=== PATIENT | female | born 1940 | race Caucasian/White ===

== ENCOUNTER 2016-02-16 11:02 | Outpatient (CLI) | payer MEDICARE, BC | END 2016-02-16 11:03 | disposition home or self-care (01) | DX: E78.5 Hyperlipidemia, unspecified (principal); M79.662 Pain in left lower leg ==

== ENCOUNTER 2016-03-02 11:26 | Outpatient (CLI) | payer MEDICARE, BC | END 2016-03-02 11:27 | disposition home or self-care (01) | DX: M17.12 Unilateral primary osteoarthritis, left knee (principal) ==

== ENCOUNTER 2017-03-27 13:34 | Outpatient (CLI) | payer MEDICARE, BC ==
[2017-03-27 17:53] LABS: BASOPHILS % (AUTO) 0.5 %; HGB - HEMOGLOBIN 12.1 g/dL (12.0-16.0); LYMPHOCYTES # (AUTO) 0.7 10^3/uL (1.5-3.5); LYMPHOCYTES % (AUTO) 30.6 %; MEAN CORPUSCULAR HEMOGLOBIN 30.5 pg (27.0-31.0); MEAN CORPUSCULAR VOLUME 89.8 fL (81.0-99.0); MEAN PLATELET VOLUME 7.9 fL (7.9-10.8); MONOCYTES # (AUTO) 0.4 10^3/uL (0.0-1.0); MONOCYTES % (AUTO) 17.7 %; NEUTROPHILS # (AUTO) 1.1 10^3/uL (1.5-6.6); NEUTROPHILS % (AUTO) 50.2 %; PLT - PLATELET COUNT 100 10^3/uL (130-450); RED BLOOD COUNT 3.95 10^6/uL (4.20-5.40); RED CELL DISTRIBUTION WIDTH 15.6 % (12.0-15.0); WHITE BLOOD COUNT 2.1 x10^3/uL (4.8-10.8)
[2017-03-27 18:37] LABS: PLATELET ESTIMATE, MANUAL DECREASED (<130,000) (NORMAL); PLATELET MORPHOLOGY NORMAL APPEARANCE (NORMAL); RBC MORPHOLOGY (MULTIPLE) NORMAL APPEARANCE (NORMAL)
[2017-03-27 20:37] LABS: DIFFERENTIAL COMMENT MANUAL=AUTO DIFF
== END 2017-03-27 13:35 | disposition home or self-care (01) ==
LOC: LAB.F 13:34
PROVIDERS: ATTEND Physician Assistant
DX: D69.6 Thrombocytopenia, unspecified (principal); D72.819 Decreased white blood cell count, unspecified
CPT/HCPCS: 36415; 85025

== ENCOUNTER 2020-10-05 18:27 | Outpatient (CLI) | payer MEDICARE, BC | END 2020-10-05 18:28 | disposition home or self-care (01) | LOC: COV 18:27 | PROVIDERS: ATTEND Family Medicine | DX: Z20.822 Contact with and (suspected) exposure to COVID-19 (principal) ==

== ENCOUNTER 2021-01-31 12:19 | Outpatient (CLI) | payer MEDICARE, BC ==
--- NOTE | 2021-01-31 14:51 | XRAY Report ---
PROCEDURE: Hip w/Pelvis 2-3V RT INDICATIONS: RT HIP PAIN TECHNIQUE: AP pelvis with lateral view(s) of the right hip(s). COMPARISON: None. FINDINGS: Bones: No fractures or dislocations. Asymmetric moderate right hip joint osteoarthritic changes are seen. No evidence of avascular necrosis of femoral head. Pelvic ring appears intact. No suspicious bony lesions. Soft tissues: The visualized bowel gas pattern is normal. No suspicious soft tissue calcifications. IMPRESSION: Asymmetric right hip joint osteoarthritis. No pelvic or hip fracture. No evidence of avas cular necrosis. Reviewed by: Sekou Cobb MD on 01/31/2021 2:50 PM PST Approved by: Sekou Cobb MD on 01/31/2021 2:50 PM PST Station ID: [id number]
== END 2021-01-31 12:20 | disposition home or self-care (01) ==
LOC: DI 12:19
PROVIDERS: ATTEND Hospitalist
DX: M25.551 Pain in right hip (principal)

== ENCOUNTER 2021-05-03 06:24 | Inpatient (IN) | payer MEDICARE, BC ==
[2021-05-03] MEDS ORDERED: SODIUM CHLORIDE 0.9% 1,000 ML IV STA ×4 (06:51→11:00)
[2021-05-03] MEDS ORDERED: KETOROLAC 30 MG/ML VIAL IVP STA (06:51)
[2021-05-03] MEDS ORDERED: ONDANSETRON 4 MG/2 ML VIAL IVP STA (06:51)
[2021-05-03 07:09] LABS: ALBUMIN 4.3 g/dL (3.2-5.5); ALBUMIN/GLOBULIN RATIO 1.3 (1.0-2.2); BILIRUBIN,TOTAL 1.6 mg/dL (0.2-1.0); CALCIUM 9.6 mg/dL (8.5-10.3); CREATININE 1.3 mg/dL (0.4-1.0); POTASSIUM 3.9 mmol/L (3.5-5.0); TOTAL PROTEIN 7.7 g/dL (6.7-8.2)
--- NOTE | 2021-05-03 07:09 | ED Physician Documentation ---
PD HPI ABD PAIN - Stated complaint Stated Complaint: FEMALE - Chief complaint Chief Complaint: Abd Pain - History obtained from History obtained from: Patient - History of Present Illness Timing - onset: Last night Timing - duration: Days (2-3 mild lower abd cramping with marked worsening this morning in past hour or so.) Timing - details: Gradual onset, Still present Quality: Cramping, Aching, Pain Location: Suprapubic, LLQ Radiation: Left flank (just this morning) Associated symptoms: Fever, Nausea, Constipation, Loss of appetite. 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 denies: Vomiting, Diarrhea : denies: Dysuria, Frequency, Discharge Neurologic: reports: Generalized weakness. denies: Near syncope, Altered mental status, Headache PD PAST MEDICAL HISTORY - Past Medical History Past Medical History: Yes Cardiovascular: Hypertension, High cholesterol, Atrial fibrillation Respiratory: None Endocrine/Autoimmune: None GI: None : None HEENT: None Psych: None Musculoskeletal: None Derm: Other Other Past Medical History: pancytopenia with usually low WBC, platelets and anemia. 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 HEENT: Other - Present Medications Home Medications: Ambulatory Orders Medication Instructions Recorded Confirmed Cholecalciferol (Vitamin D3) 2,000 unit PO DAILY 05/08/17 05/03/21 [Vitamin D3] atenoloL [Atenolol] 25 mg PO DAILY 05/08/17 05/03/21 Multivitamin 1 each PO DAILY 05/03/21 05/03/21 - Allergies Allergies/Adverse Reactions: Allergies Allergy/AdvReac Type Severity Reaction Status Date / Time No Known Drug Allergies Allergy Verified 05/03/21 06:48 - Social History Does the pt smoke?: No Smoking Status: Never smoker Does the pt drink ETOH?: No Does the pt have substance abuse?: No - Immunizations Immunizations are current?: Yes - POLST Patient has POLST: No PD ED PE NORMAL - Vitals Vital signs reviewed: Yes (temp initially normal but increased to 38.) - General General: Alert and oriented X 3, Well developed/nourished, Other (appears in considerable left flank pain on arrival to ER. ) - HEENT HEENT: Pharynx benign - Neck Neck: Supple, no meningeal sign, No adenopathy - Cardiac Cardiac: RRR, No murmur - Respiratory Respiratory: Clear bilaterally - Abdomen Abdomen: Normal bowel sounds, Soft, Non distended, No organomegaly, Other (tenderness left lower abd without percussion/guarding/nor rebound tenderness. ) - Female Female : Deferred - Rectal Rectal: Deferred - Back Back: Other (moderate left CVA tenderness to percussion. ) - Derm Derm: Normal color, Warm and dry - Extremities Extremities: Normal ROM s pain, No edema, No calf tenderness / cord - Neuro Neuro: Alert and oriented X 3, No motor deficit, Normal speech Eye Opening: Spontaneous Motor: Obeys Commands Verbal: Oriented GCS Score: 15 Results - Vitals Vitals: Vital Signs - 24 hr 05/03/21 05/03/21 05/03/21 06:35 07:27 08:00 Temperature 36.2 C L 40.1 C H 38.6 C H Heart Rate 100 104 H 98 Respiratory 20 24 14 Rate Blood Pressure 173/94 H 145/69 H 121/57 L O2 Saturation 96 94 92 05/03/21 05/03/21 05/03/21 08:30 09:00 09:30 Temperature Heart Rate 98 87 83 Respiratory 16 12 15 Rate Blood Pressure 118/57 L 92/59 L 99/51 L O2 Saturation 94 94 96 05/03/21 05/03/21 09:45 10:32 Temperature 36.2 C L Heart Rate 87 133 H Respiratory 20 18 Rate Blood Pressure 95/65 94/57 L O2 Saturation 94 92 Oxygen O2 Source Room air - Tele (time rhythm occurred) in ED Telemetry / rhythm strip: Rate (125), Atrial fibrillation (initially was NSR but developed atrial fib while in ER, rate 120s. Given Metroprolol IV after fluid bolus for BP. ) - Labs Labs: Laboratory Tests 05/03/21 05/03/21 05/03/21 06:44 06:44 08:17 WBC 4.6 L RBC 4.44 Hgb 13.4 Hct 41.1 MCV 92.6 MCH 30.2 MCHC 32.6 RDW 14.9 Plt Count 88 L MPV 11.0 H Neut # (Auto) Not Reportable Lymph # (Auto) Not Reportable [place] # (Auto) Not Reportable Eos # (Auto) Not Reportable Baso # (Auto) Not Reportable Absolute Nucleated RBC Not Reportable Total Counted 100 Band Neuts % (Manual) 18 H Abnorm Lymph % (Manual) 0 Myelocytes % 4 H Nucleated RBC % Not Reportable Neutrophils # (Manual) 4.2 Lymphocytes # (Manual) 0.2 L Monocytes # (Manual) 0.0 Eosinophils # (Manual) 0.0 Basophils # (Manual) 0.0 Differential Comment MANUAL DIFFERENTIAL Manual Slide Review Indicated Sodium 137 Potassium 3.9 Chloride 99 L Carbon Dioxide 24 Anion Gap 14.0 H BUN 25 H Creatinine 1.3 H Estimated GFR (MDRD) 39 L Glucose 119 H Lactic Acid Calcium 9.6 Total Bilirubin 1.6 H AST 30 ALT 19 Alkaline Phosphatase 69 Total Protein 7.7 Albumin 4.3 Globulin 3.4 Albumin/Globulin Ratio 1.3 Lipase 39 Urine Color BROWN Urine Clarity CLOUDY Urine pH 5.5 Ur Specific [place] 1.020 Urine Protein >=300 H Urine Glucose (UA) NEGATIVE Urine Ketones NEGATIVE Urine Occult Blood LARGE H Urine Nitrite POSITIVE H Urine Bilirubin NEGATIVE Urine Urobilinogen 1 (NORMAL) Ur Leukocyte Esterase LARGE H Urine RBC TNTC H Urine WBC >25 H Ur Squamous Epith Cells NONE SEEN Urine Bacteria Rare Ur Microscopic Review INDICATED Urine Culture Comments INDICATED Nasal Adenovirus (PCR) Nasal B. parapertussis DNA (PCR) Nasal Coronavir 229E PCR Nasal Coronavir HKU1 PCR Nasal Coronavir NL63 PCR Nasal Coronavir OC43 PCR Nasal Enterovir/Rhinovir PCR Nasal Influenza B PCR Nasal Influenza A PCR Nasal Parainfluen 1 PCR Nasal Parainfluen 2 PCR Nasal Parainfluen 3 PCR Nasal Parainfluen 4 PCR Nasal RSV (PCR) Nasal B.pertussis DNA PCR Nasal C.pneumoniae (PCR) Re[place]undo Human Metapneumo PCR Nasal M.pneumoniae (PCR) Nasal SARS-CoV-2 (PCR) 05/03/21 05/03/21 08:30 10:35 WBC RBC Hgb Hct MCV MCH MCHC RDW Plt Count MPV Neut # (Auto) Lymph # (Auto) [place] # (Auto) Eos # (Auto) Baso # (Auto) Absolute Nucleated RBC Total Counted Band Neuts % (Manual) Abnorm Lymph % (Manual) Myelocytes % Nucleated RBC % Neutrophils # (Manual) Lymphocytes # (Manual) Monocytes # (Manual) Eosinophils # (Manual) Basophils # (Manual) Differential Comment Manual Slide Review Sodium Potassium Chloride Carbon Dioxide Anion Gap BUN Creatinine Estimated GFR (MDRD) Glucose Lactic Acid 1.5 Calcium Total Bilirubin AST ALT Alkaline Phosphatase Total Protein Albumin Globulin Albumin/Globulin Ratio Lipase Urine Color Urine Clarity Urine pH Ur Specific [place] Urine Protein Urine Glucose (UA) Urine Ketones Urine Occult Blood Urine Nitrite Urine Bilirubin Urine Urobilinogen Ur Leukocyte Esterase Urine RBC Urine WBC Ur Squamous Epith Cells Urine Bacteria Ur Microscopic Review Urine Culture Comments Nasal Adenovirus (PCR) NOT DETECTED Nasal B. parapertussis DNA (PCR) NOT DETECTED Nasal Coronavir 229E PCR NOT DETECTED Nasal Coronavir HKU1 PCR NOT DETECTED Nasal Coronavir NL63 PCR NOT DETECTED Nasal Coronavir OC43 PCR NOT DETECTED Nasal Enterovir/Rhinovir PCR NOT DETECTED Nasal Influenza B PCR NOT DETECTED Nasal Influenza A PCR NOT DETECTED Nasal Parainfluen 1 PCR NOT DETECTED Nasal Parainfluen 2 PCR NOT DETECTED Nasal Parainfluen 3 PCR NOT DETECTED Nasal Parainfluen 4 PCR NOT DETECTED Nasal RSV (PCR) NOT DETECTED Nasal B.pertussis DNA PCR NOT DETECTED Nasal C.pneumoniae (PCR) NOT DETECTED Reymundo Human Metapneumo PCR NOT DETECTED Nasal M.pneumoniae (PCR) NOT DETECTED Nasal SARS-CoV-2 (PCR) NOT DETECTED - Rads (name of study) abd/pelvic CT Radiology: Prelim report reviewed (bladder wall thickening, bilateral perinephric stranding left greater than right, c/w infectious process. no kidney stones. ), See rad report PD MEDICAL DECISION MAKING - ED course Complexity details: reviewed results (CT did not show any ureteral stones. No hydronephrosis. has perinephric stranding and bladder wall thickening. no other acute process. UA c/w UTI and relatively elevated WBCs (she is usually WBC 2-3) with bandemia. ), re-evaluated patient (she is feeling less pain and generally improved, but now BP is lowering to about 90s systolic and then she did change rhythm into atrial fib (which she says is paroxysmal often for her). I feel she has impending sepsis, with markers of significant infection: fever, bandemia, developing hypotension. ), considered differential (consider kidney stone with degree of pain abruptly, versus diverticulitis, pyelo, other process. ), d/w patient - Critical Care Time(min): 45 Time Includes: Direct patient care, Reassess patient, Document care, Coordinate care, See progress note (initial severe pain and treated with meds. Given IV fluids x 2 liters as developing lower BP in setting of infection, and then given IV meds for fast rate atrial fib in ER. Eval for impending sepsis. ) Data interpretation: Labs Departure - Departure Disposition: [facility] DC/Xfer Clinical Impression: Fever, UTI (urinary tract infection), Bandemia, Hypotension Condition: Stable Discharge Date/Time: 05/03/21 11:25
[2021-05-03 07:19] LABS: BASOPHILS % (AUTO) 0.4 %; EOSINOPHILS % (AUTO) 0.2 %; HCT - HEMATOCRIT 41.1 % (37.0-47.0); HGB - HEMOGLOBIN 13.4 g/dL (12.0-16.0); LYMPHOCYTES % (AUTO) 8.1 %; MEAN CORPUSCULAR HEMOGLOBIN 30.2 pg (27.0-31.0); MEAN CORPUSCULAR HGB CONC 32.6 g/dL (32.0-36.0); MEAN CORPUSCULAR VOLUME 92.6 fL (81.0-99.0); MONOCYTES % (AUTO) 1.1 %; PLT - PLATELET COUNT 88 10^3/uL (130-450); RED BLOOD COUNT 4.44 10^6/uL (4.20-5.40); RED CELL DISTRIBUTION WIDTH 14.9 % (12.0-15.0); SLIDE REVIEW? Indicated; WHITE BLOOD COUNT 4.6 x10^3/uL (4.8-10.8)
[2021-05-03 07:20] LABS: ABNORMAL LYMPHS % (MANUAL) 0 %
[2021-05-03 07:56] LABS: BAND NEUTROPHILS % (MANUAL) 18 %; DIFFERENTIAL COMMENT MANUAL DIFFERENTIAL; LYMPHOCYTES # (MANUAL) 0.2 10^3/uL (1.5-3.5); LYMPHOCYTES % (MANUAL) 4 %; MYELOCYTES % (MANUAL) 4 %; NEUTROPHILS # (MANUAL) 4.2 10^3/uL (1.5-6.6)
[2021-05-03] MEDS ORDERED: ACETAMINOPHEN 325 MG TABLET PO STA (08:03)
[2021-05-03 08:41] LABS: GLUCOSE, URINE (UA) NEGATIVE (NEGATIVE); KETONES,URINE (UA) NEGATIVE (NEGATIVE); LEUKOCYTE ESTERASE, URINE LARGE (NEGATIVE); NITRITE,URINE POSITIVE (NEGATIVE); OCCULT BLOOD,URINE LARGE (NEGATIVE); PH,URINE 5.5 PH (5.0-7.5); PROTEIN,URINE >=300 mg/dL (NEGATIVE); UROBILINOGEN,URINE 1 (NORMAL) E.U./dL (NORMAL)
[2021-05-03 08:51] LABS: BILIRUBIN,URINE NEGATIVE (NEGATIVE); CLARITY,URINE CLOUDY (CLEAR); ICTOTEST,URINE NEGATIVE
--- NOTE | 2021-05-03 08:51 | CT Report ---
PROCEDURE: Abdomen/Pelvis WO INDICATIONS: L flank pain TECHNIQUE: Noncontrast 5 mm thick sections acquired from the diaphragms to the symphysis. 5 mm coronal and sagi ttal reformats were then performed. For radiation dose reduction, the following was used: automated exposure control, adjustment of mA and/or kV according to patient size. COMPARISON: None. FINDINGS: Inferior chest: Bibasilar atelectasis or scarring. No pleural effusion. No cardiomegaly or pericardi al effusion. Trace hiatal hernia. Gallbladder: The gallbladder is distended with a smooth wall. Biliary tree: No intra-or extrahepatic biliary ductal dilatation. Liver: The liver demonstrates normal appearance. Spleen: Normal size and morphology is seen. Pancreas: Normal morphology without masses or inflammatory changes. Adrenals: Normal size without masses. Kidneys: Bilateral perinephric stranding, right greater than left. No contour deforming solid masses or evidence of obstructive uropathy. Vasculature: No evidence of aneurysm or other significant vascular pathology. Calcified edematous c hange of the liver. Lymphatic system: No pathologic enlargement by size criteria. Bowel: No evidence of intestinal obstruction or inflammatory change. Mild to moderate stool burden th roughout the colon. Sigmoid of tuberculosis. Normal appendix. Peritoneum/Retroperitoneum: No free intraperitoneal gas or large collection. Urinary bladder: Mild wall thickening of the urinary bladder, which is underdistended. Pelvic organs: The uterus appears surgically absent. Bones/soft tissues: Multifocal degenerative change. IMPRESSION: 1.Mild wall prominence of the urinary bladder, which may be related to underdistention. Cystitis aneta ot be excluded. 2.Mild to moderate stool burden throughout the colon. 3.Bilateral nonspecific perinephric stranding, right greater than left. Concordant interpretation with preliminary report. Reviewed by: Eddie Schilling MD on 05/03/2021 8:49 AM PDT Approved by: Eddie Schilling MD on 05/03/2021 8:49 AM PDT Station ID: [id number]
[2021-05-03 08:52] LABS: BACTERIA,URINE Rare /HPF (None Seen); RBC,URINE TNTC /HPF (0-5); SQUAMOUS EPITHELIAL CELL,UR NONE SEEN (<= Few); WBC,URINE >25 /HPF (0-5)
[2021-05-03] MEDS ORDERED: cefTRIAXone 1 GM VIAL IVP STA (08:59)
[2021-05-03] MEDS ORDERED: METOPROLOL 5 MG/5 ML VIAL IVP STA (10:21)
[2021-05-03] MEDS ORDERED: SODIUM CHLORIDE FLUSH 0.9% 10 ML SYRINGE IVP PRN (10:36)
[2021-05-03] MEDS ORDERED: ONDANSETRON 4 MG/2 ML VIAL IVP PRN (10:36)
[2021-05-03 11:36] LABS: CORONAVIRUS 229E-RESP PCR NOT DETECTED; CORONAVIRUS HKU1-RESP PCR NOT DETECTED; CORONAVIRUS NL63-RESP PCR NOT DETECTED; CORONAVIRUS OC43-RESP PCR NOT DETECTED; HUMAN METAPNEUMOVIRUS NOT DETECTED; INFLUENZA A- RESP PCR PANEL NOT DETECTED; INFLUENZA B - RESP PCR PANEL NOT DETECTED; PARAINFLUENZA VIRUS 1 NOT DETECTED; PARAINFLUENZA VIRUS 2 NOT DETECTED; RHINOVIRUS/ENTEROVIRUS NOT DETECTED; SARS-CoV-2 -RESP PCR PANEL NOT DETECTED
[2021-05-03 11:37] LABS: B. PARAPERTUSSIS- RESP PCR PAN NOT DETECTED; B. PERTUSSIS- RESP PCR PANEL NOT DETECTED; C. PNEUMONIAE- RESP PCR PANEL NOT DETECTED; M. PNEUMONIAE- RESP PCR PANEL NOT DETECTED; PARAINFLUENZA VIRUS 3 NOT DETECTED; PARAINFLUENZA VIRUS 4 NOT DETECTED; RSV- RESP PCR PANEL NOT DETECTED
[2021-05-03] MEDS: ACETAMINOPHEN 325 MG TABLET PO PRN ×2 (12:33→21:52)
--- NOTE | 2021-05-03 12:48 | PHARMACY PROGRESS NOTE ---
- Best Possible Medication History Admit Date and Time: 05/03/21 1036 Processed by: Nursing Medication History completed: Yes Patient Interview: Completed Secondary Source(s): Pharmacy records, Insurance records As the person ultimately responsible for medication therapy, providers are able to order a medication from an existing home medication list in [facility] via the "Reconcile Routine" prior to Confirmation of that medication by manufacturing support engineer. Such practice is discouraged except when the physician, in their clinical judgment, deems that a medical need exists for a medication without regard to previous use.
[2021-05-03] MEDS ORDERED: SODIUM CHLORIDE 0.9% 1,000 ML IV ONE (13:28)
[2021-05-03] MEDS: LACTATED RINGERS 1,000 ML IV SCH ×2 (13:28→21:07)
--- NOTE | 2021-05-03 13:32 | HISTORY & PHYSICAL EXAMINATION ---
Chief Complaint - Chief Complaint Chief Complaint: Flank pain History of Present Illness - Admitted From Admitted From:: ED - History Obtained From History obtained from: ED provider and the patient - History of Present Illness HPI Comment/Other: This is an 80-year-old white female with a remote history of atrial fib for which she was put on atenolol and saw Dr roper over 10 years ago. She also has a history of pancytopenia and is followed by Dr. Casas at [facility]; she has never had a bone marrow biopsy see to determine the etiology and has never required platelet or blood transfusions. For the last few days she has noticed hematuria and lower abdominal pain, then today developed flank pain that was severe and she drove herself to the ED. In the ER, her white blood count was 4.6 but it usually runs 2, and she had shaking chills and spiked a fever of 40 degrees C. Her blood pressure has been declining ever since presentation from systolic 140 down to 120 then 90 and currently 70 systolic. She received IV narcotics for her flank pain. She underwent a CT of the abdomen and pelvis that showed bilateral perinephric streaking consistent with pyelonephritis, no hydronephrosis, and no stones were seen. The patient is being admitted for management of sepsis from pyelonephritis. While in the ED, she went into A. fib with RVR with rates of 120. She reported to the ED provider about the remote history of having A. fib and said she can feel palpitations when she gets her A. fib. She received 1 dose of IV metoprolol. She does still feel her palpitations, but denies any chest pain, dizziness or dyspnea. 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 ) Social History Notes: She does not smoke and never smoked cigarettes. She drinks alcohol socially, possibly 3 times a week. 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 She moved to [facility] 13 yrs ago from [place]. She gardens and walks alot, is "not sedentary". - Substance History Use: Uses substance without health or social issues: NONE - POLST Patient has POLST: No Meds/Allgy - Home Medications Home Medications: Ambulatory Orders Medication Instructions Recorded Confirmed Cholecalciferol (Vitamin D3) 2,000 unit PO DAILY 05/08/17 05/03/21 [Vitamin D3] atenoloL [Atenolol] 25 mg PO DAILY 05/08/17 05/03/21 Multivitamin 1 each PO DAILY 05/03/21 05/03/21 - Allergies Allergies/Adverse Reactions: Allergies Allergy/AdvReac Type Severity Reaction Status Date / Time No Known Drug Allergies Allergy Verified 05/03/21 06:48 Review of Systems - Musculoskeletal Musculoskeletal: reports: Back pain - All Other Systems All Other Systems: reports: Reviewed and negative Exam - Vital Signs Reviewed Vital Signs: Yes Vital Signs: Vital Signs x48h Temp Pulse Pulse Pulse Resp BP BP 05/03/21 13:20 87 14 05/03/21 12:47 124 H 70/40 L 05/03/21 12:15 78/44 L 05/03/21 11:33 37.1 C 05/03/21 11:29 115 H 20 82/46 L 05/03/21 11:14 36.2 C L 122 H 22 95/55 L 05/03/21 10:56 121 H 14 94/55 L 05/03/21 10:32 133 H 18 94/57 L 05/03/21 09:45 36.2 C L 87 20 95/65 05/03/21 09:30 83 15 99/51 L 05/03/21 09:00 87 12 92/59 L 05/03/21 08:30 98 16 118/57 L 05/03/21 08:00 38.6 C H 98 14 121/57 L 05/03/21 07:27 40.1 C H 104 H 24 145/69 H 05/03/21 06:35 36.2 C L 100 20 173/94 H Pulse Ox 05/03/21 13:20 97 05/03/21 12:47 05/03/21 12:15 05/03/21 11:33 05/03/21 11:29 97 05/03/21 11:14 96 05/03/21 10:56 92 05/03/21 10:32 92 05/03/21 09:45 94 05/03/21 09:30 96 05/03/21 09:00 94 05/03/21 08:30 94 05/03/21 08:00 92 05/03/21 07:27 94 05/03/21 06:35 96 - Physical Exam General Appearance: positive: No acute distress, Alert Eyes Bilateral: positive: Normal inspection, EOMI ENT: positive: ENT inspection nml, No signs of dehydration Neck: positive: No JVD, Other (L neck mass: dark mole with raised, red borders, non-tender) Respiratory: positive: No respiratory distress, Breath sounds nml Cardiovascular: positive: No murmur, Irregularly irregular Abdomen: positive: Non-tender, Nml bowel sounds, No distention Skin: positive: Warm, Dry Extremities: positive: Non-tender, No pedal edema Neurologic/Psychiatric: positive: Oriented x3 (Non-focal) Sepsis Event Note (H) - Evaluation Current Stage of Sepsis: Sepsis Possible source of Sepsis: positive: Genitourinary - Sepsis Criteria Sepsis Criteria: Recorded Temperature greater than 38.3C or Less than 36C, Recorded Heart Rate greater than 90 bpm, SBP drop more than 40mHg Conclusion/Plan - Problem List (1) Sepsis Conclusion/Plan: She has a very high fever, is tachycardic and is having worsening hypotension. We will treat with IV fluids, recheck her lactic acid level, also follow her white blood count and CRP. We will begin treatment with empiric IV antibiotics for her UTI source (2) Pyelonephritis Conclusion/Plan: CT imaging shows perinephric fat stranding bilaterally, no obstruction. We will treat with IV antibiotics, continue with ceftriaxone. Await blood culture results. Await urine culture results. Give IV pain meds if needed (3) Hypotension Conclusion/Plan: Presumably this is from sepsis however will rule out cardiac cause given the A. fib with RVR and check troponins and an EKG. Continue with IV fluids. Follow her lactic acid level and CRP, if this is related to her infection that is potentially worsening. Consider transferring to the ICU (4) Atrial fibrillation with RVR Conclusion/Plan: This is not new onset A. fib however she describes she has had no "palpitations" (which is her way of confirming A. fib), for over 10 years. Will give IV Digoxin for rate control, hold beta-bharat atenolol or any further IV medications because of her low blood pressure. We will check troponins to rule out NH as the cause of this new A. fib. We will order Echo to evaluate for structural heart disease (however we do not have any Echo service currently) Currently her CHADS score equals 2 (hypertension and age over 75). But because of her thrombocytopenia, we will be hesitant to start anticoagulation or anti- platelet agents. (5) Pancytopenia Conclusion/Plan: As per Hx. The etiology is not known since she has never had a bone marrow biopsy done. Will use SCDs for DVT prophylaxis, not anticoagulants (6) Atypical mole of neck Conclusion/Plan: She already has an appointment with Dermatology to have this removed in mid-May [place] - Lab Results Fish Bones: 05/03/21 06:44 05/03/21 06:44 - Diagnostic Imaging Results Diagnostic Imaging Results: positive: Final report reviewed - EKG Results EKG Interpreted Independently: Yes EKG Comparison: Old EKG unavailable EKG Findings: A. fib, rate 127, nonspecific ST-T wave abnormalities in diffuse leads. - Other Other Results/Comments: Attestation: The patient is expected to be discharged or transferred to another facility for 96 hours: Yes.
[2021-05-03] MEDS ORDERED: DIGOXIN 500 MCG/2 ML AMP IVP STA (13:33)
[2021-05-03] MEDS: LIDOCAINE PATCH 5% TOP PRN (13:49)
[2021-05-03] MEDS ORDERED: POTASSIUM CHLORIDE 20 MEQ TABLET PO ONE (16:32)
[2021-05-03 16:55] LABS: MAGNESIUM 1.5 mg/dL (1.7-2.8); PHOSPHORUS 1.6 mg/dL (2.5-4.6)
[2021-05-03] MEDS: SACCHAROMYCES BOULARDII 250 MG CAPSULE PO SCH (17:08)
[2021-05-03] MEDS: SODIUM CHLORIDE FLUSH 0.9% 10 ML SYRINGE IVP SCH (17:09)
[2021-05-03] MEDS: MAGNESIUM OXIDE 400 MG TABLET PO SCH ×2 (18:05→23:28)
[2021-05-03] MEDS: NEUTRA-PHOS 250 MG TABLET PO SCH ×2 (18:06→20:32)
--- NOTE | 2021-05-03 19:36 | XRAY Report ---
PROCEDURE: Chest 1 View X-Ray INDICATIONS: SOB TECHNIQUE: One view of the chest was acquired. COMPARISON: July 21, 2014 FINDINGS: SUPPORT DEVICES: None. LUNGS/PLEURA: Prominent interstitial markings, compatible with pulmonary edema. No large pleural effu ira or pneumothorax. MEDIASTINUM: The cardiomediastinal silhouette is within normal limits. BONES/SOFT TISSUES: No acute abnormality. Degenerative change of the left shoulder. IMPRESSION: 1.Pulmonary edema pattern. Reviewed by: Eddie Schilling MD on 05/03/2021 7:35 PM PDT Approved by: Eddie Schilling MD on 05/03/2021 7:35 PM PDT Station ID: [id number]
[2021-05-03] MEDS: FAMOTIDINE 20 MG TABLET PO SCH (20:32)
[2021-05-03] MEDS ORDERED: CEFEPIME 2 GM in SODIUM CHLORIDE 0.9% MINIBAG 100 ML IV SCH (21:00)
[2021-05-03] MEDS ORDERED: ASPIRIN CHEW 81 MG TABLET PO STA (21:33)
[2021-05-03] MEDS ORDERED: TEMAZEPAM 15 MG CAPSULE PO PRN (23:57)
[2021-05-04] MEDS: SODIUM CHLORIDE FLUSH 0.9% 10 ML SYRINGE IVP SCH ×3 (00:12→17:00)
[2021-05-04] MEDS: LACTATED RINGERS 1,000 ML IV SCH ×4 (00:31→16:05)
[2021-05-04] MEDS: ACETAMINOPHEN 325 MG TABLET PO PRN ×3 (02:07→19:47)
[2021-05-04] MEDS ORDERED: LACTATED RINGERS 500 ML IV ONE (03:08)
[2021-05-04 05:15] LABS: INR 1.1 (0.8-1.2); PT - PROTHROMBIN TIME 12.7 secs (9.9-12.6)
[2021-05-04 06:20] LABS: MAGNESIUM 1.6 mg/dL (1.7-2.8); PHOSPHORUS 2.3 mg/dL (2.5-4.6)
[2021-05-04] MEDS: NEUTRA-PHOS 250 MG TABLET PO SCH ×2 (06:59→08:01)
[2021-05-04] MEDS: MAGNESIUM OXIDE 400 MG TABLET PO SCH ×2 (06:59→12:59)
[2021-05-04 07:13] LABS: CALCIUM 7.6 mg/dL (8.5-10.3); CREATININE 1.6 mg/dL (0.4-1.0); POTASSIUM 4.5 mmol/L (3.5-5.0)
[2021-05-04 07:29] LABS: BASOPHILS % (AUTO) 0.2 %; EOSINOPHILS % (AUTO) 0.2 %; HGB - HEMOGLOBIN 9.9 g/dL (12.0-16.0); LYMPHOCYTES # (AUTO) 0.5 10^3/uL (1.5-3.5); LYMPHOCYTES % (AUTO) 4.8 %; MEAN CORPUSCULAR VOLUME 90.9 fL (81.0-99.0); MONOCYTES # (AUTO) 2.3 10^3/uL (0.0-1.0); MONOCYTES % (AUTO) 20.7 %; NEUTROPHILS % (AUTO) 73.1 %; PLT - PLATELET COUNT 59 10^3/uL (130-450); RED CELL DISTRIBUTION WIDTH 15.2 % (12.0-15.0)
[2021-05-04 07:30] LABS: CALCIUM, IONIZED 1.1 mmol/L (1.15-1.33); VBG PH 7.333 (7.31-7.41)
[2021-05-04 07:34] LABS: SLIDE REVIEW? Indicated
[2021-05-04 07:56] LABS: RBC MORPHOLOGY (MULTIPLE) 2+ ANISOCYTOSIS (NORMAL)
[2021-05-04] MEDS: MULTIVITAMIN TABLET PO SCH (07:59)
[2021-05-04] MEDS: SACCHAROMYCES BOULARDII 250 MG CAPSULE PO SCH ×2 (08:00→17:00)
[2021-05-04] MEDS: CHOLECALCIFEROL 25 MCG TABLET PO SCH (08:00)
[2021-05-04] MEDS: FAMOTIDINE 20 MG TABLET PO SCH ×2 (08:01→09:11)
--- NOTE | 2021-05-04 08:40 | PROVIDER PROGRESS NOTE ---
Objective - Vital Signs/Intake & Output Reviewed Vital Signs: Yes Vital Signs: Vital Signs Temp Pulse Resp BP Pulse Ox 05/04/21 08:00 36.6 C 80 22 103/58 L 98 05/04/21 07:00 66 12 89/64 L 97 05/04/21 06:00 71 25 H 90/49 L 99 05/04/21 05:00 68 14 88/48 L 97 Intake & Output: Intake & Output 05/01/21 05/02/21 05/03/21 05/04/21 23:59 23:59 23:59 23:59 Intake Total 5947.667 2140.831 Output Total 75 200 Balance 5872.667 1940.831 - Objective General Appearance: positive: No acute distress, Lethargic, Other (Appears very fatigued, reports very poor sleep last nite due to LBP (which she has had before)) Eyes Bilateral: positive: EOMI, Other (Lids appear "heavy" (tired)) ENT: positive: No signs of dehydration Neck: positive: Nml inspection, No JVD Respiratory: positive: No respiratory distress, Breath sounds nml Cardiovascular: positive: Regular rate & rhythm, No murmur Abdomen: positive: Non-tender, No distention Skin: positive: Warm, Dry Extremities: positive: Non-tender, No pedal edema Neurologic/Psychiatric: positive: Oriented x3 (Non-focal) - Lab Results Fish Bones: 05/04/21 07:21 05/04/21 04:16 Other Labs: Lab Results x24hrs 05/04/21 05/04/21 05/04/21 Range/Units 07:21 07:21 04:16 WBC 11.0 H (4.8-10.8) x10^3/uL RBC 3.30 L (4.20-5.40) 10^6/uL Hgb 9.9 L (12.0-16.0) g/dL Hct 30.0 L (37.0-47.0) % MCV 90.9 (81.0-99.0) fL MCH 30.0 (27.0-31.0) pg MCHC 33.0 (32.0-36.0) g/dL RDW 15.2 H (12.0-15.0) % Plt Count 59 L (130-450) 10^3/uL MPV 12.0 H (7.9-10.8) fL Neut # (Auto) 8.0 H (1.5-6.6) 10^3/uL Lymph # (Auto) 0.5 L (1.5-3.5) 10^3/uL [place] # (Auto) 2.3 H (0.0-1.0) 10^3/uL Eos # (Auto) 0.0 (0.0-0.7) 10^3/uL Baso # (Auto) 0.0 (0.0-0.1) 10^3/uL Absolute Nucleated RBC 0.00 x10^3/uL Nucleated RBC % 0.0 /100WBC Manual Slide Review Indicated RBC Morph Micro Appear 2+ ANISOCYTOSIS (NORMAL) PT (9.9-12.6) secs INR (0.8-1.2) VBG pH 7.333 (7.31-7.41) Ionized Calcium 1.10 L (1.15-1.33) mmol/L Sodium 132 L (135-145) mmol/L Potassium 4.5 (3.5-5.0) mmol/L Chloride 104 (101-111) mmol/L Carbon Dioxide 19 L (21-32) mmol/L Anion Gap 9.0 (6-13) BUN 32 H (6-20) mg/dL Creatinine 1.6 H (0.4-1.0) mg/dL Estimated GFR (MDRD) 31 L (>89) Glucose 97 (70-100) mg/dL Lactic Acid (0.5-2.2) mmol/L Calcium 7.6 L (8.5-10.3) mg/dL Phosphorus (2.5-4.6) mg/dL Magnesium (1.7-2.8) mg/dL Troponin I High Sens (2.3-14.8) ng/L C-Reactive Protein (0-1.0) mg/dL B-Natriuretic Peptide (5-100) pg/mL Urine Color Urine Clarity (CLEAR) Urine pH (5.0-7.5) PH Ur Specific [place] (1.002-1.030) Urine Protein (NEGATIVE) mg/dL Urine Glucose (UA) (NEGATIVE) mg/dL Urine Ketones (NEGATIVE) mg/dL Urine Occult Blood (NEGATIVE) Urine Nitrite (NEGATIVE) Urine Bilirubin (NEGATIVE) Urine Urobilinogen (NORMAL) E.U./dL Ur Leukocyte Esterase (NEGATIVE) Urine RBC (0-5) /HPF Urine WBC (0-5) /HPF Ur Squamous Epith Cells (<= Few) Urine Bacteria (None Seen) /HPF Ur Microscopic Review Urine Culture Comments Nasal Adenovirus (PCR) Nasal B. parapertussis DNA (PCR) Nasal Coronavir 229E PCR Nasal Coronavir HKU1 PCR Nasal Coronavir NL63 PCR Nasal Coronavir OC43 PCR Nasal Enterovir/Rhinovir PCR Nasal Influenza B PCR Nasal Influenza A PCR Nasal Parainfluen 1 PCR Nasal Parainfluen 2 PCR Nasal Parainfluen 3 PCR Nasal Parainfluen 4 PCR Nasal RSV (PCR) Nasal Screen MRSA (PCR) (NEGATIVE) Nasal B.pertussis DNA PCR Nasal C.pneumoniae (PCR) [place] Human Metapneumo PCR Nasal M.pneumoniae (PCR) Nasal SARS-CoV-2 (PCR) 05/04/21 05/04/21 05/04/21 Range/Units 04:16 04:16 04:16 WBC (4.8-10.8) x10^3/uL RBC (4.20-5.40) 10^6/uL Hgb (12.0-16.0) g/dL Hct (37.0-47.0) % MCV (81.0-99.0) fL MCH (27.0-31.0) pg MCHC (32.0-36.0) g/dL RDW (12.0-15.0) % Plt Count (130-450) 10^3/uL MPV (7.9-10.8) fL Neut # (Auto) (1.5-6.6) 10^3/uL Lymph # (Auto) (1.5-3.5) 10^3/uL [place] # (Auto) (0.0-1.0) 10^3/uL Eos # (Auto) (0.0-0.7) 10^3/uL Baso # (Auto) (0.0-0.1) 10^3/uL Absolute Nucleated RBC x10^3/uL Nucleated RBC % /100WBC Manual Slide Review RBC Morph Micro Appear (NORMAL) PT (9.9-12.6) secs INR (0.8-1.2) VBG pH (7.31-7.41) Ionized Calcium (1.15-1.33) mmol/L Sodium (135-145) mmol/L Potassium (3.5-5.0) mmol/L Chloride (101-111) mmol/L Carbon Dioxide (21-32) mmol/L Anion Gap (6-13) BUN (6-20) mg/dL Creatinine (0.4-1.0) mg/dL Estimated GFR (MDRD) (>89) Glucose (70-100) mg/dL Lactic Acid (0.5-2.2) mmol/L Calcium (8.5-10.3) mg/dL Phosphorus 2.3 L (2.5-4.6) mg/dL Magnesium 1.6 L (1.7-2.8) mg/dL Troponin I High Sens 293.8 H* (2.3-14.8) ng/L C-Reactive Protein (0-1.0) mg/dL B-Natriuretic Peptide 264 H (5-100) pg/mL Urine Color Urine Clarity (CLEAR) Urine pH (5.0-7.5) PH Ur Specific [place] (1.002-1.030) Urine Protein (NEGATIVE) mg/dL Urine Glucose (UA) (NEGATIVE) mg/dL Urine Ketones (NEGATIVE) mg/dL Urine Occult Blood (NEGATIVE) Urine Nitrite (NEGATIVE) Urine Bilirubin (NEGATIVE) Urine Urobilinogen (NORMAL) E.U./dL Ur Leukocyte Esterase (NEGATIVE) Urine RBC (0-5) /HPF Urine WBC (0-5) /HPF Ur Squamous Epith Cells (<= Few) Urine Bacteria (None Seen) /HPF Ur Microscopic Review Urine Culture Comments Nasal Adenovirus (PCR) Nasal B. parapertussis DNA (PCR) Nasal Coronavir 229E PCR Nasal Coronavir HKU1 PCR Nasal Coronavir NL63 PCR Nasal Coronavir OC43 PCR Nasal Enterovir/Rhinovir PCR Nasal Influenza B PCR Nasal Influenza A PCR Nasal Parainfluen 1 PCR Nasal Parainfluen 2 PCR Nasal Parainfluen 3 PCR Nasal Parainfluen 4 PCR Nasal RSV (PCR) Nasal Screen MRSA (PCR) (NEGATIVE) Nasal B.pertussis DNA PCR Nasal C.pneumoniae (PCR) [place] Human Metapneumo PCR Nasal M.pneumoniae (PCR) Nasal SARS-CoV-2 (PCR) 05/04/21 05/04/21 05/03/21 Range/Units 04:16 04:16 23:00 WBC (4.8-10.8) x10^3/uL RBC (4.20-5.40) 10^6/uL Hgb (12.0-16.0) g/dL Hct (37.0-47.0) % MCV (81.0-99.0) fL MCH (27.0-31.0) pg MCHC (32.0-36.0) g/dL RDW (12.0-15.0) % Plt Count (130-450) 10^3/uL MPV (7.9-10.8) fL Neut # (Auto) (1.5-6.6) 10^3/uL Lymph # (Auto) (1.5-3.5) 10^3/uL [place] # (Auto) (0.0-1.0) 10^3/uL Eos # (Auto) (0.0-0.7) 10^3/uL Baso # (Auto) (0.0-0.1) 10^3/uL Absolute Nucleated RBC x10^3/uL Nucleated RBC % /100WBC Manual Slide Review RBC Morph Micro Appear (NORMAL) PT 12.7 H (9.9-12.6) secs INR 1.1 (0.8-1.2) VBG pH (7.31-7.41) Ionized Calcium (1.15-1.33) mmol/L Sodium (135-145) mmol/L Potassium (3.5-5.0) mmol/L Chloride (101-111) mmol/L Carbon Dioxide (21-32) mmol/L Anion Gap (6-13) BUN (6-20) mg/dL Creatinine (0.4-1.0) mg/dL Estimated GFR (MDRD) (>89) Glucose (70-100) mg/dL Lactic Acid (0.5-2.2) mmol/L Calcium (8.5-10.3) mg/dL Phosphorus (2.5-4.6) mg/dL Magnesium (1.7-2.8) mg/dL Troponin I High Sens 346.8 H* (2.3-14.8) ng/L C-Reactive Protein 15.2 H (0-1.0) mg/dL B-Natriuretic Peptide (5-100) pg/mL Urine Color Urine Clarity (CLEAR) Urine pH (5.0-7.5) PH Ur Specific [place] (1.002-1.030) Urine Protein (NEGATIVE) mg/dL Urine Glucose (UA) (NEGATIVE) mg/dL Urine Ketones (NEGATIVE) mg/dL Urine Occult Blood (NEGATIVE) Urine Nitrite (NEGATIVE) Urine Bilirubin (NEGATIVE) Urine Urobilinogen (NORMAL) E.U./dL Ur Leukocyte Esterase (NEGATIVE) Urine RBC (0-5) /HPF Urine WBC (0-5) /HPF Ur Squamous Epith Cells (<= Few) Urine Bacteria (None Seen) /HPF Ur Microscopic Review Urine Culture Comments Nasal Adenovirus (PCR) Nasal B. parapertussis DNA (PCR) Nasal Coronavir 229E PCR Nasal Coronavir HKU1 PCR Nasal Coronavir NL63 PCR Nasal Coronavir OC43 PCR Nasal Enterovir/Rhinovir PCR Nasal Influenza B PCR Nasal Influenza A PCR Nasal Parainfluen 1 PCR Nasal Parainfluen 2 PCR Nasal Parainfluen 3 PCR Nasal Parainfluen 4 PCR Nasal RSV (PCR) Nasal Screen MRSA (PCR) (NEGATIVE) Nasal B.pertussis DNA PCR Nasal C.pneumoniae (PCR) [place] Human Metapneumo PCR Nasal M.pneumoniae (PCR) Nasal SARS-CoV-2 (PCR) 05/03/21 05/03/21 05/03/21 Range/Units 19:45 19:33 19:33 WBC (4.8-10.8) x10^3/uL RBC (4.20-5.40) 10^6/uL Hgb (12.0-16.0) g/dL Hct (37.0-47.0) % MCV (81.0-99.0) fL MCH (27.0-31.0) pg MCHC (32.0-36.0) g/dL RDW (12.0-15.0) % Plt Count (130-450) 10^3/uL MPV (7.9-10.8) fL Neut # (Auto) (1.5-6.6) 10^3/uL Lymph # (Auto) (1.5-3.5) 10^3/uL [place] # (Auto) (0.0-1.0) 10^3/uL Eos # (Auto) (0.0-0.7) 10^3/uL Baso # (Auto) (0.0-0.1) 10^3/uL Absolute Nucleated RBC x10^3/uL Nucleated RBC % /100WBC Manual Slide Review RBC Morph Micro Appear (NORMAL) PT (9.9-12.6) secs INR (0.8-1.2) VBG pH (7.31-7.41) Ionized Calcium (1.15-1.33) mmol/L Sodium (135-145) mmol/L Potassium (3.5-5.0) mmol/L Chloride (101-111) mmol/L Carbon Dioxide (21-32) mmol/L Anion Gap (6-13) BUN (6-20) mg/dL Creatinine (0.4-1.0) mg/dL Estimated GFR (MDRD) (>89) Glucose (70-100) mg/dL Lactic Acid 1.8 (0.5-2.2) mmol/L Calcium (8.5-10.3) mg/dL Phosphorus (2.5-4.6) mg/dL Magnesium (1.7-2.8) mg/dL Troponin I High Sens 370.2 H* (2.3-14.8) ng/L C-Reactive Protein (0-1.0) mg/dL B-Natriuretic Peptide 385 H (5-100) pg/mL Urine Color Urine Clarity (CLEAR) Urine pH (5.0-7.5) PH Ur Specific [place] (1.002-1.030) Urine Protein (NEGATIVE) mg/dL Urine Glucose (UA) (NEGATIVE) mg/dL Urine Ketones (NEGATIVE) mg/dL Urine Occult Blood (NEGATIVE) Urine Nitrite (NEGATIVE) Urine Bilirubin (NEGATIVE) Urine Urobilinogen (NORMAL) E.U./dL Ur Leukocyte Esterase (NEGATIVE) Urine RBC (0-5) /HPF Urine WBC (0-5) /HPF Ur Squamous Epith Cells (<= Few) Urine Bacteria (None Seen) /HPF Ur Microscopic Review Urine Culture Comments Nasal Adenovirus (PCR) Nasal B. parapertussis DNA (PCR) Nasal Coronavir 229E PCR Nasal Coronavir HKU1 PCR Nasal Coronavir NL63 PCR Nasal Coronavir OC43 PCR Nasal Enterovir/Rhinovir PCR Nasal Influenza B PCR Nasal Influenza A PCR Nasal Parainfluen 1 PCR Nasal Parainfluen 2 PCR Nasal Parainfluen 3 PCR Nasal Parainfluen 4 PCR Nasal RSV (PCR) Nasal Screen MRSA (PCR) (NEGATIVE) Nasal B.pertussis DNA PCR Nasal C.pneumoniae (PCR) [place] Human Metapneumo PCR Nasal M.pneumoniae (PCR) Nasal SARS-CoV-2 (PCR) 05/03/21 05/03/21 05/03/21 Range/Units 16:34 16:34 15:40 WBC (4.8-10.8) x10^3/uL RBC (4.20-5.40) 10^6/uL Hgb (12.0-16.0) g/dL Hct (37.0-47.0) % MCV (81.0-99.0) fL MCH (27.0-31.0) pg MCHC (32.0-36.0) g/dL RDW (12.0-15.0) % Plt Count (130-450) 10^3/uL MPV (7.9-10.8) fL Neut # (Auto) (1.5-6.6) 10^3/uL Lymph # (Auto) (1.5-3.5) 10^3/uL [place] # (Auto) (0.0-1.0) 10^3/uL Eos # (Auto) (0.0-0.7) 10^3/uL Baso # (Auto) (0.0-0.1) 10^3/uL Absolute Nucleated RBC x10^3/uL Nucleated RBC % /100WBC Manual Slide Review RBC Morph Micro Appear (NORMAL) PT (9.9-12.6) secs INR (0.8-1.2) VBG pH (7.31-7.41) Ionized Calcium (1.15-1.33) mmol/L Sodium (135-145) mmol/L Potassium (3.5-5.0) mmol/L Chloride (101-111) mmol/L Carbon Dioxide (21-32) mmol/L Anion Gap (6-13) BUN (6-20) mg/dL Creatinine (0.4-1.0) mg/dL Estimated GFR (MDRD) (>89) Glucose (70-100) mg/dL Lactic Acid (0.5-2.2) mmol/L Calcium (8.5-10.3) mg/dL Phosphorus 1.6 L (2.5-4.6) mg/dL Magnesium 1.5 L (1.7-2.8) mg/dL Troponin I High Sens 255.4 H* (2.3-14.8) ng/L C-Reactive Protein (0-1.0) mg/dL B-Natriuretic Peptide (5-100) pg/mL Urine Color Urine Clarity (CLEAR) Urine pH (5.0-7.5) PH Ur Specific [place] (1.002-1.030) Urine Protein (NEGATIVE) mg/dL Urine Glucose (UA) (NEGATIVE) mg/dL Urine Ketones (NEGATIVE) mg/dL Urine Occult Blood (NEGATIVE) Urine Nitrite (NEGATIVE) Urine Bilirubin (NEGATIVE) Urine Urobilinogen (NORMAL) E.U./dL Ur Leukocyte Esterase (NEGATIVE) Urine RBC (0-5) /HPF Urine WBC (0-5) /HPF Ur Squamous Epith Cells (<= Few) Urine Bacteria (None Seen) /HPF Ur Microscopic Review Urine Culture Comments Nasal Adenovirus (PCR) Nasal B. parapertussis DNA (PCR) Nasal Coronavir 229E PCR Nasal Coronavir HKU1 PCR Nasal Coronavir NL63 PCR Nasal Coronavir OC43 PCR Nasal Enterovir/Rhinovir PCR Nasal Influenza B PCR Nasal Influenza A PCR Nasal Parainfluen 1 PCR Nasal Parainfluen 2 PCR Nasal Parainfluen 3 PCR Nasal Parainfluen 4 PCR Nasal RSV (PCR) Nasal Screen MRSA (PCR) NEGATIVE (NEGATIVE) Nasal B.pertussis DNA PCR Nasal C.pneumoniae (PCR) [place] Human Metapneumo PCR Nasal M.pneumoniae (PCR) Nasal SARS-CoV-2 (PCR) 05/03/21 05/03/21 05/03/21 Range/Units 13:46 13:46 13:46 WBC (4.8-10.8) x10^3/uL RBC (4.20-5.40) 10^6/uL Hgb (12.0-16.0) g/dL Hct (37.0-47.0) % MCV (81.0-99.0) fL MCH (27.0-31.0) pg MCHC (32.0-36.0) g/dL RDW (12.0-15.0) % Plt Count (130-450) 10^3/uL MPV (7.9-10.8) fL Neut # (Auto) (1.5-6.6) 10^3/uL Lymph # (Auto) (1.5-3.5) 10^3/uL [place] # (Auto) (0.0-1.0) 10^3/uL Eos # (Auto) (0.0-0.7) 10^3/uL Baso # (Auto) (0.0-0.1) 10^3/uL Absolute Nucleated RBC x10^3/uL Nucleated RBC % /100WBC Manual Slide Review RBC Morph Micro Appear (NORMAL) PT (9.9-12.6) secs INR (0.8-1.2) VBG pH (7.31-7.41) Ionized Calcium (1.15-1.33) mmol/L Sodium (135-145) mmol/L Potassium (3.5-5.0) mmol/L Chloride (101-111) mmol/L Carbon Dioxide (21-32) mmol/L Anion Gap (6-13) BUN (6-20) mg/dL Creatinine (0.4-1.0) mg/dL Estimated GFR (MDRD) (>89) Glucose (70-100) mg/dL Lactic Acid 2.8 H (0.5-2.2) mmol/L Calcium (8.5-10.3) mg/dL Phosphorus (2.5-4.6) mg/dL Magnesium (1.7-2.8) mg/dL Troponin I High Sens 179.0 H* (2.3-14.8) ng/L C-Reactive Protein 13.7 H (0-1.0) mg/dL B-Natriuretic Peptide (5-100) pg/mL Urine Color Urine Clarity (CLEAR) Urine pH (5.0-7.5) PH Ur Specific [place] (1.002-1.030) Urine Protein (NEGATIVE) mg/dL Urine Glucose (UA) (NEGATIVE) mg/dL Urine Ketones (NEGATIVE) mg/dL Urine Occult Blood (NEGATIVE) Urine Nitrite (NEGATIVE) Urine Bilirubin (NEGATIVE) Urine Urobilinogen (NORMAL) E.U./dL Ur Leukocyte Esterase (NEGATIVE) Urine RBC (0-5) /HPF Urine WBC (0-5) /HPF Ur Squamous Epith Cells (<= Few) Urine Bacteria (None Seen) /HPF Ur Microscopic Review Urine Culture Comments Nasal Adenovirus (PCR) Nasal B. parapertussis DNA (PCR) Nasal Coronavir 229E PCR Nasal Coronavir HKU1 PCR Nasal Coronavir NL63 PCR Nasal Coronavir OC43 PCR Nasal Enterovir/Rhinovir PCR Nasal Influenza B PCR Nasal Influenza A PCR Nasal Parainfluen 1 PCR Nasal Parainfluen 2 PCR Nasal Parainfluen 3 PCR Nasal Parainfluen 4 PCR Nasal RSV (PCR) Nasal Screen MRSA (PCR) (NEGATIVE) Nasal B.pertussis DNA PCR Nasal C.pneumoniae (PCR) [place] Human Metapneumo PCR Nasal M.pneumoniae (PCR) Nasal SARS-CoV-2 (PCR) 05/03/21 05/03/21 05/03/21 Range/Units 10:35 08:30 08:17 WBC (4.8-10.8) x10^3/uL RBC (4.20-5.40) 10^6/uL Hgb (12.0-16.0) g/dL Hct (37.0-47.0) % MCV (81.0-99.0) fL MCH (27.0-31.0) pg MCHC (32.0-36.0) g/dL RDW (12.0-15.0) % Plt Count (130-450) 10^3/uL MPV (7.9-10.8) fL Neut # (Auto) (1.5-6.6) 10^3/uL Lymph # (Auto) (1.5-3.5) 10^3/uL [place] # (Auto) (0.0-1.0) 10^3/uL Eos # (Auto) (0.0-0.7) 10^3/uL Baso # (Auto) (0.0-0.1) 10^3/uL Absolute Nucleated RBC x10^3/uL Nucleated RBC % /100WBC Manual Slide Review RBC Morph Micro Appear (NORMAL) PT (9.9-12.6) secs INR (0.8-1.2) VBG pH (7.31-7.41) Ionized Calcium (1.15-1.33) mmol/L Sodium (135-145) mmol/L Potassium (3.5-5.0) mmol/L Chloride (101-111) mmol/L Carbon Dioxide (21-32) mmol/L Anion Gap (6-13) BUN (6-20) mg/dL Creatinine (0.4-1.0) mg/dL Estimated GFR (MDRD) (>89) Glucose (70-100) mg/dL Lactic Acid 1.5 (0.5-2.2) mmol/L Calcium (8.5-10.3) mg/dL Phosphorus (2.5-4.6) mg/dL Magnesium (1.7-2.8) mg/dL Troponin I High Sens (2.3-14.8) ng/L C-Reactive Protein (0-1.0) mg/dL B-Natriuretic Peptide (5-100) pg/mL Urine Color BROWN Urine Clarity CLOUDY (CLEAR) Urine pH 5.5 (5.0-7.5) PH Ur Specific [place] 1.020 (1.002-1.030) Urine Protein >=300 H (NEGATIVE) mg/dL Urine Glucose (UA) NEGATIVE (NEGATIVE) mg/dL Urine Ketones NEGATIVE (NEGATIVE) mg/dL Urine Occult Blood LARGE H (NEGATIVE) Urine Nitrite POSITIVE H (NEGATIVE) Urine Bilirubin NEGATIVE (NEGATIVE) Urine Urobilinogen 1 (NORMAL) (NORMAL) E.U./dL Ur Leukocyte Esterase LARGE H (NEGATIVE) Urine RBC TNTC H (0-5) /HPF Urine WBC >25 H (0-5) /HPF Ur Squamous Epith Cells NONE SEEN (<= Few) Urine Bacteria Rare (None Seen) /HPF Ur Microscopic Review INDICATED Urine Culture Comments INDICATED Nasal Adenovirus (PCR) NOT DETECTED Nasal B. parapertussis DNA (PCR) NOT DETECTED Nasal Coronavir 229E PCR NOT DETECTED Nasal Coronavir HKU1 PCR NOT DETECTED Nasal Coronavir NL63 PCR NOT DETECTED Nasal Coronavir OC43 PCR NOT DETECTED Nasal Enterovir/Rhinovir PCR NOT DETECTED Nasal Influenza B PCR NOT DETECTED Nasal Influenza A PCR NOT DETECTED Nasal Parainfluen 1 PCR NOT DETECTED Nasal Parainfluen 2 PCR NOT DETECTED Nasal Parainfluen 3 PCR NOT DETECTED Nasal Parainfluen 4 PCR NOT DETECTED Nasal RSV (PCR) NOT DETECTED Nasal Screen MRSA (PCR) (NEGATIVE) Nasal B.pertussis DNA PCR NOT DETECTED Nasal C.pneumoniae (PCR) NOT DETECTED [place] Human Metapneumo PCR NOT DETECTED Nasal M.pneumoniae (PCR) NOT DETECTED Nasal SARS-CoV-2 (PCR) NOT DETECTED - Diagnostic Imaging Diagnostic Imaging Results: positive: Final report reviewed Sepsis Event Note (H) - Evaluation Current Stage of Sepsis: Sepsis Possible source of Sepsis: positive: Genitourinary - Sepsis Criteria Sepsis Criteria: Recorded Temperature greater than 38.3C or Less than 36C, Recorded Heart Rate greater than 90 bpm, SBP drop more than 40mHg Assessment/Plan - Problem List (1) Sepsis Impression: She had a very high fever, was tachycardic and persistent hypotension. Her lactic acid level dory yesterday into abnormal range. She remains on IV fluids. We will continue treatment with empiric IV antibiotics for her UTI source Follow her white blood count and CRP daily. Remain in ICU, in critical condition. (2) Hypotension Impression: This was probably multifactorial: From septic shock, since her lactic acid level did increase yesterday after being normal in the ED, and her hypotension was caused by tachycardia which probably dropped her cardiac output. Her IV fluids were continued and she even got another small bolus overnight. She is 5+ liters positive in fluid balance today. Will obtain a bedside 2D echo today, to evaluate her LVEF. She may need a central venous line started today and may need pressors, to keep her MAP greater than 65 mmHg. Remain in ICU, in critical condition. (3) Pulmonary edema Impression: She started to complain of shortness of breath klast night. A chest x-ray was done that did show new pulmonary edema. At that point, she was 4 L positive in fluid balance, from being aggressively resuscitated with crystalloids for her se psis and hypotension. We will not give Lasix since she is not tachypneic or desaturating, and remains on room air. Will follow her BNP daily. Will obtain a bedside 2D Echo today, to evaluate her LVEF>> Echo done by me personally (as a Board Certified Continuous Improvement Intern), at 1330 and it showed: normal LV size and wall thickness, normal LVEF 60%, no regional wall motion abnormalities seen, RV dilated, mild TR, PAP 36mmHg Qualifiers: Chronicity: acute Qualified Code(s): J81.0 - Acute pulmonary edema (4) Atrial fibrillation with RVR Impression: After receiving a single dose of digoxin 0.125 mg IV, and starting on IV fluids and IV antibiotics, she converted to NSR last night. An EKG was repeated by the [facility] Director and it showed new inverted T waves in the anterior leads. We will still hold off on resuming her atenolol because she is hypotensive today. She was started on aspirin daily yesterday evening, despite being thrombocytopenic, for stroke prophylaxis. We will watch for active bleeding and follow her daily plt count. Remain in ICU, on telemetry, in critical condition. (5) Elevated troponin Impression: Her troponins were cycled when she became hypotensive. They are elevated and did double. Presumably this was from demand ischemia from her hypotension related to sepsis. An EKG was repeated last night, when she went back into sinus rhythm, this did show new T wave inversions anteriorly. Will follow her BNP daily. Will obtain a bedside 2D echo today, to evaluate her LVEF>> Echo done by me personally (as a Board Certified Continuous Improvement Intern), at 1330 and it showed: normal LV size and wall thickness, normal LVEF 60%, no regional wall motion abnormalities seen, RV dilated, mild TR, PAP 36mmHg. (6) Pyelonephritis Impression: CT imaging shows perinephric fat stranding bilaterally, no obstruction. We will continue to treat with IV antibiotics, continuing with ceftriaxone. Await blood culture results. Await urine culture results. Give IV pain meds if needed (7) E. coli UTI Impression: Urine culture is positive for E. coli. The sensitivities are still pending. Continue with present empiric iv antibiotics until we can tailor treatment based on sensitivities. All the above was discussed with the patient and she is agreeable with the plan. (8) Pancytopenia Impression: As per Hx. The etiology is not known since she has never had a bone marrow biopsy done. Will use SCDs for DVT prophylaxis, not anticoagulants. She was started on aspirin daily yesterday evening for stroke prophylaxis in Afib, despite being thrombocytopenic. We will watch for active bleeding and follow her daily plt count, not give ASA if bleeding or if plts less than 50. (9) Atypical mole of neck Impression: She already has an appointment with Dermatology to have this removed in mid- May, in 4 weeks.
[2021-05-04] MEDS ORDERED: cefTRIAXone 1 GM in SODIUM CHLORIDE 0.9% MINIBAG 100 ML IV SCH (09:00)
[2021-05-04] MEDS: CEFEPIME 2 GM in SODIUM CHLORIDE 0.9% MINIBAG 100 ML IV SCH ×2 (09:05→20:54)
[2021-05-04] MEDS: CALCIUM CARBONATE CHEW 500 MG TABLET PO SCH ×2 (11:20→15:05)
[2021-05-04] MEDS: LIDOCAINE PATCH 5% TOP PRN (12:59)
[2021-05-04] MEDS ORDERED: LORazepam 0.5 MG TABLET PO PRN (12:59)
[2021-05-04] MEDS ORDERED: CALCIUM CARBONATE CHEW 500 MG TABLET PO SCH (20:00)
[2021-05-05] MEDS: SODIUM CHLORIDE FLUSH 0.9% 10 ML SYRINGE IVP SCH ×3 (00:39→17:45)
[2021-05-05] MEDS ORDERED: BENZOCAINE/MENTHOL LOZENGE MM PRN (01:06)
[2021-05-05] MEDS: LACTATED RINGERS 1,000 ML IV SCH (04:37)
[2021-05-05 04:57] LABS: BASOPHILS % (AUTO) 0.1 %; EOSINOPHILS % (AUTO) 0.3 %; HCT - HEMATOCRIT 31.4 % (37.0-47.0); HGB - HEMOGLOBIN 10.5 g/dL (12.0-16.0); LYMPHOCYTES % (AUTO) 5.8 %; MEAN CORPUSCULAR HEMOGLOBIN 29.9 pg (27.0-31.0); MEAN CORPUSCULAR HGB CONC 33.4 g/dL (32.0-36.0); MEAN CORPUSCULAR VOLUME 89.5 fL (81.0-99.0); MEAN PLATELET VOLUME 11.4 fL (7.9-10.8); MONOCYTES % (AUTO) 29.7 %; NEUTROPHILS % (AUTO) 62.4 %; PLT - PLATELET COUNT 69 10^3/uL (130-450); RED BLOOD COUNT 3.51 10^6/uL (4.20-5.40); RED CELL DISTRIBUTION WIDTH 15.1 % (12.0-15.0); WHITE BLOOD COUNT 7.6 x10^3/uL (4.8-10.8)
[2021-05-05 05:00] LABS: CALCIUM, IONIZED 1.13 mmol/L (1.15-1.33); VBG PH 7.389 (7.31-7.41)
[2021-05-05 05:12] LABS: ABNORMAL LYMPHS % (MANUAL) 0 %
[2021-05-05 05:14] LABS: CALCIUM 8.5 mg/dL (8.5-10.3); CRP - C-REACTIVE PROTEIN 15.7 mg/dL (0-1.0); MAGNESIUM 1.8 mg/dL (1.7-2.8); PHOSPHORUS 2.4 mg/dL (2.5-4.6); POTASSIUM 3.9 mmol/L (3.5-5.0)
[2021-05-05 05:25] LABS: BAND NEUTROPHILS % (MANUAL) 13 %; DIFFERENTIAL COMMENT MANUAL DIFFERENTIAL; EOSINOPHILS # (MANUAL) 0.2 10^3/uL (0-0.7); LYMPHOCYTES # (MANUAL) 1.2 10^3/uL (1.5-3.5); LYMPHOCYTES % (MANUAL) 16 %; MONOCYTES # (MANUAL) 1.7 10^3/uL (0.0-1.0); NEUTROPHILS # (MANUAL) 4.6 10^3/uL (1.5-6.6); PLATELET ESTIMATE, MANUAL DECREASED (<130,000) (NORMAL); RBC MORPHOLOGY (MULTIPLE) NORMAL APPEARANCE (NORMAL)
[2021-05-05] MEDS ORDERED: POTASSIUM CHLORIDE 20 MEQ TABLET PO ONE (08:00)
[2021-05-05] MEDS: FAMOTIDINE 20 MG TABLET PO SCH (08:00)
[2021-05-05] MEDS: SACCHAROMYCES BOULARDII 250 MG CAPSULE PO SCH ×2 (08:00→17:45)
[2021-05-05] MEDS: NEUTRA-PHOS 250 MG TABLET PO SCH ×2 (08:00→10:05)
[2021-05-05] MEDS: MAGNESIUM OXIDE 400 MG TABLET PO SCH ×2 (08:00→13:55)
[2021-05-05] MEDS: MULTIVITAMIN TABLET PO SCH (08:00)
[2021-05-05] MEDS: CHOLECALCIFEROL 25 MCG TABLET PO SCH (08:00)
[2021-05-05] MEDS ORDERED: LACTATED RINGERS 1,000 ML IV SCH (08:08)
[2021-05-05] MEDS: CEFEPIME 2 GM in SODIUM CHLORIDE 0.9% MINIBAG 100 ML IV SCH (08:20)
[2021-05-05] MEDS ORDERED: atenoloL 25 MG TABLET PO SCH (10:00)
[2021-05-05] MEDS: ACETAMINOPHEN 325 MG TABLET PO PRN (10:25)
[2021-05-05] MEDS ORDERED: levoFLOXacin 250 MG TABLET PO SCH (12:00)
--- NOTE | 2021-05-05 14:59 | XRAY Report ---
PROCEDURE: Chest 1 View X-Ray INDICATIONS: New cough and fever TECHNIQUE: One view of the chest was acquired. COMPARISON: 05/03/2021 FINDINGS: Surgical changes and devices: None. Lungs and pleura: No pleural effusions or pneumothorax. Continued interstitial pulmonary edema. Deve lopment of small left pleural effusion and patchy right basilar atelectasis. Mediastinum: Mediastinal contours appear normal. Heart size is normal. Bones and chest wall: No suspicious bony lesions. Overlying soft tissues appear unremarkable. Left clinical humeral joint degenerative arthritis with large osteophyte off the humeral head. IMPRESSION: Slight interval progression. Congestive heart failure exacerbation. Reviewed by: Jose Guadalupe Herron MD on 05/05/2021 2:57 PM PDT Approved by: Jose Guadalupe Herron MD on 05/05/2021 2:57 PM PDT Station ID: [id number]
[2021-05-05] MEDS ORDERED: FUROSEMIDE 20 MG/2 ML VIAL IVP STA (16:36)
--- NOTE | 2021-05-05 16:40 | Discharge Plan ---
Discharge Plan Problem Reviewed?: Yes Disposition: Home, Self Care Condition: Fair Prescriptions: Saccharomyces Boulardii [Florastor] 250 mg PO BIDWM #8 cap levoFLOXacin [Levaquin] 750 mg PO QD #12 tablet Diet: Regular Activity Restrictions: Activity as Tolerated Shower Restrictions: No Driving Restrictions: No Instruction Topics: Sepsis, Pyelonephritis Dc Health Concerns: You were admitted to the hospital with sepsis from a urinary tract infection. This caused you to have a very low blood pressure for several days, and you needed to be in the ICU. Fluids by iv had to be administered to correct your low blood pressure. Because of this, there is fluid overload in your legs and in your lungs. Please complete the full course of antibiotic treatment, the prescription for Levaquin was electronically sent to your [facility] in [place]. The next dose is tomorrow morning. Please resume all your other usual medications. If you feel lightheaded or weak, it could be from dehydration, then take in more fluids. I expect that the leg swelling will be absorbed by your own body systems and you will urinate it out in the next 2 days or so. Keep your leg elevated when sitting, to help decrease the swelling in your legs. Also, you need to have a stress test and a complete Echocardiogram done as an outpatient because of the abnormal troponin values, abnormal EKG, the recurrence of Afib and the shortness of breath/pulmonary edema. Your primary care provider should schedule this for you. Please have a hospital follow-up visit with your primary care provider in the next 1 to 2 weeks. Plan of Treatment: As above. Care Goals: Improvement in symptoms and stabilization are the goals. Assessment: The patient understands and is agreeable with the plan. Additional Instructions or Follow Up instructions: If you have new or worsening symptoms, call your PCP for advice or come to the ED. No Smoking: If you smoke, Please STOP! Call for help. Follow-up with: LEA PUTNAM [Primary Care Provider] -
[2021-05-05 16:48] VITALS: BP 126/67
--- NOTE | 2021-05-05 16:51 | DISCHARGE SUMMARY ---
Discharge Summary Admit Date: 05/03/21 Discharge Date: 05/05/21 Discharging Provider: Dr Kika Poon Primary Care Provider: Dr Zaid Vann Code Status: Attempt Resuscitation Condition at Discharge: Fair Discharge Disposition: 01 Home, Self Care - HPI History of Present Illness: This is an 80-year-old white female with a remote history of atrial fib for which she was put on atenolol and saw Dr roper over 10 years ago. She also has a history of pancytopenia and is followed by Dr. Casas at [facility]; she has never had a bone marrow biopsy see to determine the etiology and has never required platelet or blood transfusions. For the last few days she has noticed hematuria and lower abdominal pain, then today developed flank pain that was severe and she drove herself to the ED. In the ER, her white blood count was 4.6 but it usually runs 2, and she had shaking chills and spiked a fever of 40 degrees C. Her blood pressure has been declining ever since presentation from systolic 140 down to 120 then 90 and currently 70 systolic. She received IV narcotics for her flank pain. She underwent a CT of the abdomen and pelvis that showed bilateral perinephric streaking consistent with pyelonephritis, no hydronephrosis, and no stones were seen. The patient is being admitted for management of sepsis from pyelonephritis. While in the ED, she went into A. fib with RVR with rates of 120. She reported to the ED provider about the remote history of having A. fib and said she can feel palpitations when she gets her A. fib. She received 1 dose of IV metoprolol. She does still feel her palpitations, but denies any chest pain, dizziness or dyspnea. - HOSPITAL COURSE Hospital Course: (1) Sepsis She had a very high fever, was tachycardic and persistently hypotensive. She was in the ICU, in critical condition. Her lactic acid level dory on Day 2. She received IV fluids, empiric IV antibiotics for a UTI source. Her BP improved after aggressive iv hydration (which caused peripheral edema). She was discharged to complete a course of oral antibiotics. (2) Hypotension This was probably multifactorial: From septic shock, since her lactic acid level did increase on Day 2 after being normal in the ED, and her hypotension was caused by her marked tachycardia which likely dropped her cardiac output. She needed fluid boluses and maintenance IV fluids were continued. Her home BP meds were on hold. She was 5+ liters positive in fluid balance at discharge and did develop leg edema. (3) Pulmonary edema She started to complain of shortness of breath on Day 2. A chest x-ray was done that did show new pulmonary edema. At that point, she was 4 L positive in fluid balance, from being aggressively resuscitated with crystalloids for her sepsis and hypotension. A bedside limited Echo was done that showed a normal LV size and wall thickness, normal LVEF 60%, no regional wall motion abnormalities seen, RV dilated, mild tricuspid regurg, PAP 36mmHg. She did receive iv Lasix on the day of discharge and oral Lasix prn was also prescribed for after discharge. (4) Atrial fibrillation with RVR After receiving a single dose of Digoxin 0.125 mg IV, and after starting on IV fluids and IV antibiotics, she converted to NSR on her first night. A repeat EKG showed new inverted T waves in the anterior leads. She was started on baby aspirin daily, despite being thrombocytopenic, for stroke prophylaxis. She was not discharged on anti-plt agents or anticoagulants due to her plt count being 59. (5) Elevated troponin Her troponins were cycled when she became hypotensive. They were elevated and did rise (179>> 255>> 370>> 346). Presumably this was from demand ischemia from her hypotension related to sepsis. The repeat EKG, when she went back into sinus rhythm, did show new T wave inversions anteriorly. Therefore, a bedside limited Echo was done that showed a normal LV size and wall thickness, normal LVEF 60%, no regional wall motion abnormalities seen, RV dilated, mild tricuspid regurg, PAP 36mmHg. (6) Pyelonephritis CT imaging showed perinephric fat stranding bilaterally, no obstruction. She was on empiric IV antibiotics, with ceftriaxone. Her blood cultures remained neg and urine culture grew E coli. She was discharged on oral Levaquin 750 mg daily (plus probiotics), to complete a total 7-days of antibiotics. (7) E. coli UTI Urine culture became positive for E. coli. The sensitivities were used to tanya choice of antibx. (8) Pancytopenia As per Hx. The etiology is not known since she has never had a bone marrow biopsy done. We ordered SCDs for DVT prophylaxis, but later she was started on aspirin daily for stroke prophylaxis due to the Afib. At discharge, however, no anti-platelet agents or anticoagulants were prescribed, due to her plt count being 59. Her Hgb ran 13>> 9.9 after iv fluids. Her admission WBC was 4.6 (and she said her WBC is usually 2). (9) Atypical mole of neck She already has an appointment with Dermatology to have this removed in mid- May, in 4 weeks. - ALLERGIES Allergies/Adverse Reactions: Allergies Allergy/AdvReac Type Severity Reaction Status Date / Time No Known Drug Allergies Allergy Verified 05/03/21 06:48 - MEDICATIONS Home Medications: Ambulatory Orders Medication Instructions Recorded Confirmed Cholecalciferol (Vitamin D3) 2,000 unit PO DAILY 05/08/17 05/03/21 [Vitamin D3] atenoloL [Atenolol] 25 mg PO DAILY 05/08/17 05/03/21 Multivitamin 1 each PO DAILY 05/03/21 05/03/21 Saccharomyces Boulardii [Florastor] 250 mg PO BIDWM #8 cap 05/05/21 levoFLOXacin [Levaquin] 750 mg PO QD #12 tablet 05/05/21 Furosemide [Lasix] 20 mg PO DAILY PRN #10 tablet 05/06/21 - PHYSICAL EXAM AT DISCHARGE General Appearance: positive: No acute distress, Alert, Other (Appears very fatigued) Eyes Bilateral: positive: Normal inspection, EOMI ENT: positive: ENT inspection nml, No signs of dehydration Neck: positive: Nml inspection, Thyroid nml Respiratory: positive: No respiratory distress, Breath sounds nml Cardiovascular: positive: Regular rate & rhythm, No murmur Abdomen: positive: Non-tender, Nml bowel sounds, No distention Skin: positive: Warm, Dry Neurologic/Psychiatric: positive: Oriented x3 (Non-focal) - LABS Result Diagrams: 05/05/21 04:11 05/05/21 04:11 - DIAGNOSTIC IMAGING Diagnostic Imaging Results: Final report reviewed - SEPSIS Current Stage of Sepsis: Sepsis Possible source of Sepsis: Genitourinary Sepsis Criteria: Recorded Temperature greater than 38.3C or Less than 36C, Recorded Heart Rate greater than 90 bpm, SBP drop more than 40mHg - FOLLOW UP Follow Up: See PCP in 1-2 weeks after discharge. - TIME SPENT Time Spent in Discharge (Minutes): 55
== END 2021-05-05 18:00 | disposition home or self-care (01) | DRG 871 ==
LOC: ED 06:24 → MS2 10:36 → ICU 15:04
PROVIDERS: ADMIT Internal Medicine; ATTEND Internal Medicine
DX: N39.0 Urinary tract infection, site not specified (principal); I95.9 Hypotension, unspecified; I48.0 Paroxysmal atrial fibrillation; A41.51 Sepsis due to Escherichia coli [E. coli]; I10 Essential (primary) hypertension; E78.00 Pure hypercholesterolemia, unspecified; Z20.822 Contact with and (suspected) exposure to COVID-19; R65.21 Severe sepsis with septic shock; J81.0 Acute pulmonary edema; N12 Tubulo-interstitial nephritis, not specified as acute or chronic; D61.818 Other pancytopenia; D22.4 Melanocytic nevi of scalp and neck; R77.8 Other specified abnormalities of plasma proteins
CPT/HCPCS: 36415; 71045; 74176; 80048; 80053; 81001; 82330; 83605; 83690; 83735; 83880; 84100; 84484; 85025; 85610; 86140; 87040; 87086; 87150; 87181; 87631; 93005; 96361; 96374; 96375; 99285; 99291; A9270; J7120; 0202U; 81003

== ENCOUNTER 2021-06-18 11:01 | Emergency (ER) | payer MEDICARE, BC ==
[2021-06-18 11:35] VITALS: BP 138/65
[2021-06-18 11:51] LABS: BILIRUBIN,URINE NEGATIVE (NEGATIVE); GLUCOSE, URINE (UA) NEGATIVE (NEGATIVE); KETONES,URINE (UA) NEGATIVE (NEGATIVE); LEUKOCYTE ESTERASE, URINE TRACE (NEGATIVE); NITRITE,URINE NEGATIVE (NEGATIVE); OCCULT BLOOD,URINE TRACE-INTA (NEGATIVE); PROTEIN,URINE NEGATIVE (NEGATIVE); UROBILINOGEN,URINE 0.2 (NORMAL) E.U./dL (NORMAL)
[2021-06-18 11:53] LABS: CLARITY,URINE CLEAR (CLEAR)
[2021-06-18 12:01] LABS: BACTERIA,URINE Rare /HPF (None Seen); RBC,URINE 0-5 /HPF (0-5); SQUAMOUS EPITHELIAL CELL,UR MOD Squamous (<= Few); WBC,URINE 0-3 /HPF (0-5)
[2021-06-18] MEDS ORDERED: FLUCONAZOLE 100 MG TABLET PO STA (12:24)
--- NOTE | 2021-06-18 12:26 | ED Physician Documentation ---
PD HPI FEMALE - Stated complaint Stated Complaint: FEMALE - Chief complaint Chief Complaint: UTI - History obtained from History obtained from: Patient - Additional information Additional information: 80-year-old woman finished up what I think is probably minocycline a few days ago that was given prophylactically after a Mohs surgery on the left side of her neck. Over the last day or so she has developed constant vaginal burning that is not associated with urination. He does not associate with dysuria, frequency, flank pain, hematuria. She did have an ICU stay about 2 months ago for pyelonephritis. Review of Systems Constitutional: denies: Fever, Chills Nose: reports: Reviewed and negative Cardiac: reports: Reviewed and negative Respiratory: reports: Reviewed and negative GI: reports: Reviewed and negative PD PAST MEDICAL HISTORY - Past Medical History Cardiovascular: Hypertension, High cholesterol, Atrial fibrillation Respiratory: None Neuro: None Endocrine/Autoimmune: None GI: None : None HEENT: None Psych: None Musculoskeletal: None Derm: Other - Past Surgical History Past Surgical History: Yes Ortho: Arthroscopic surgery /[employer]: Hysterectomy HEENT: Other - Present Medications Home Medications: Ambulatory Orders Medication Instructions Recorded Confirmed Cholecalciferol (Vitamin D3) 2,000 unit PO DAILY 05/08/17 06/13/21 [Vitamin D3] atenoloL [Atenolol] 25 mg PO DAILY 05/08/17 06/13/21 Multivitamin 1 each PO DAILY 05/03/21 06/13/21 Nitrofurantoin [Macrobid] 1 cap PO BID #10 cap 06/18/21 - Allergies Allergies/Adverse Reactions: Allergies Allergy/AdvReac Type Severity Reaction Status Date / Time No Known Drug Allergies Allergy Verified 06/18/21 11:31 - Social History Does the pt smoke?: No Smoking Status: Never smoker Does the pt drink ETOH?: No Does the pt have substance abuse?: No - Immunizations Immunizations are current?: Yes - POLST Patient has POLST: No PD ED PE NORMAL - Vitals Vital signs reviewed: Yes - General General: Alert and oriented X 3, No acute distress - Back Back: No CVA TTP, No spinal TTP - Derm Derm: Normal color, Warm and dry - Extremities Extremities: No edema, No calf tenderness / cord Results - Vitals Vitals: Vital Signs - 24 hr 06/18/21 11:31 Temperature 66 C H Heart Rate 67 Respiratory 16 Rate Blood Pressure 138/65 H O2 Saturation 99 Oxygen O2 Source Room air - Labs Labs: Laboratory Tests 06/18/21 11:45 Urine Color YELLOW Urine Clarity CLEAR Urine pH 6.0 Ur Specific [place] <=1.005 Urine Protein NEGATIVE Urine Glucose (UA) NEGATIVE Urine Ketones NEGATIVE Urine Occult Blood TRACE-INTA Urine Nitrite NEGATIVE Urine Bilirubin NEGATIVE Urine Urobilinogen 0.2 (NORMAL) Ur Leukocyte Esterase TRACE H Urine RBC 0-5 Urine WBC 0-3 Ur Squamous Epith Cells MOD Squamous H Urine Bacteria Rare Ur Microscopic Review INDICATED Urine Culture Comments NOT INDICATED PD MEDICAL DECISION MAKING - ED course ED course: This 80-year-old woman presents with vaginal burning after using antibiotics. Her urinalysis is relatively unimpressive with some squamous cells and trace leukocyte esterase but otherwise unremarkable. Using shared decision making I offered the followin. Move her to a private room for pelvic examination and swabs 2. Trial of Diflucan 3. Trial Diflucan with a as needed prescription for Macrobid given that she is leaving the country tomorrow 4. Trial of Diflucan and to go ahead and start Macrobid She opted for #3 after discussion and this is the plan. Departure - Departure Disposition: Home, Self Care Clinical Impression: Vaginal burning Condition: Good Record reviewed to determine appropriate education?: Yes Prescriptions: Nitrofurantoin [Macrobid] 1 cap PO BID #10 cap Comments: As discussed, we are treating you for a yeast infection with the Diflucan/fluconazole that you were given here. If not better over the next couple of days or anytime if you develop symptoms more closely related to urination, go ahead and start the antibiotic which I sent electronically to the [facility] pharmacy at the corner of [facility] [address] [facility] [address] here in [place]. Return for new or worsening symptoms.
== END 2021-06-18 12:43 | disposition home or self-care (01) ==
LOC: ED 11:01
DX: N94.9 Unspecified condition associated with female genital organs and menstrual cycle (principal); R20.8 Other disturbances of skin sensation; I10 Essential (primary) hypertension; I48.91 Unspecified atrial fibrillation
CPT/HCPCS: 81001; 99282; 99283; A9270; 81003; 87086

== ENCOUNTER 2022-11-14 07:24 | Outpatient (CLI) | payer MEDICARE, BC ==
[2022-11-14 15:33] LABS: BASOPHILS % (AUTO) 0.7 %; EOSINOPHILS % (AUTO) 3.5 %; HCT - HEMATOCRIT 39.8 % (37.0-47.0); HGB - HEMOGLOBIN 12.7 g/dL (12.0-16.0); LYMPHOCYTES % (AUTO) 36.5 %; MEAN CORPUSCULAR HEMOGLOBIN 29.1 pg (27.0-31.0); MEAN CORPUSCULAR HGB CONC 31.9 g/dL (32.0-36.0); MEAN CORPUSCULAR VOLUME 91.1 fL (81.0-99.0); MONOCYTES % (AUTO) 21.9 %; PLT - PLATELET COUNT 99 10^3/uL (130-450); RED BLOOD COUNT 4.37 10^6/uL (4.20-5.40); WHITE BLOOD COUNT 2.9 x10^3/uL (4.8-10.8)
[2022-11-14 15:47] LABS: % IRON SATURATION 26 % (20-50); ALBUMIN 4.1 g/dL (3.2-5.5); ALBUMIN/GLOBULIN RATIO 1.6 (1.0-2.2); ALKALINE PHOSPHATASE 54 IU/L (42-121); ALT ALANINE AMINOTRANSFERASE 9 IU/L (10-60); AST ASPARTATE AMINOTRANSFERASE 16 IU/L (10-42); BILIRUBIN,TOTAL 0.9 mg/dL (0.2-1.0); BUN - BLOOD UREA NITROGEN 22 mg/dL (6-20); CALCIUM 9.5 mg/dL (8.5-10.3); CARBON DIOXIDE - CO2 30 mmol/L (21-32); CHLORIDE 106 mmol/L (101-111); CHOL/HDL RATIO 3.9 (<4.4); CHOLESTEROL 195 mg/dL; GFR - MDRD 53 (>89); GLUCOSE 93 mg/dL (74-104); HDL CHOLESTEROL 50 mg/dL; IRON 90 ug/dL (50-212); LDL CHOLESTEROL,CALCULATED 133 mg/dL; LDL/HDL RATIO 2.7 (<4.4); POTASSIUM 4.4 mmol/L (3.5-4.5); SODIUM 139 mmol/L (135-145); TOTAL IRON BINDING CAPACITY 353 ug/dL (250-450); TOTAL PROTEIN 6.6 g/dL (6.4-8.9); TRANSFERRIN 252 mg/dL (203-362); TRIGLYCERIDES 62 mg/dL (48-352); VLDL CHOLESTEROL 12 mg/dL
[2022-11-14 15:55] LABS: ABNORMAL LYMPHS % (MANUAL) 0 %
[2022-11-14 16:00] LABS: THYROID STIMULATING HORMONE 2.47 uIU/mL (0.34-5.60)
[2022-11-14 16:07] LABS: FERRITIN 66.3 ng/mL (11.0-306.8)
[2022-11-14 17:18] LABS: BAND NEUTROPHILS % (MANUAL) 1 %; BASOPHILS % (MANUAL) 1 %; LYMPHOCYTES # (MANUAL) 1.2 10^3/uL (1.5-3.5); LYMPHOCYTES % (MANUAL) 38 %; MONOCYTES # (MANUAL) 0.5 10^3/uL (0.0-1.0); NEUTROPHILS # (MANUAL) 1.1 10^3/uL (1.5-6.6); PLATELET ESTIMATE, MANUAL DECREASED (<130,000) (NORMAL); PLATELET MORPHOLOGY 1+ GIANT PLATELETS (NORMAL); PROMYELOCYTES % (MANUAL) 1 %; RBC MORPHOLOGY (MULTIPLE) 2+ ANISOCYTOSIS (NORMAL); REACTIVE LYMPHS % (MANUAL) 5 %
[2022-11-14 17:19] LABS: DIFFERENTIAL COMMENT MANUAL DIFFERENTIAL
[2022-11-14 19:56] LABS: ESTIMATED AVERAGE GLUCOSE 105 mg/dL (70-100); HEMOGLOBIN A1c% 5.3 % (4.27-6.07)
== END 2022-11-14 07:25 | disposition home or self-care (01) ==
LOC: LAB.S 07:24
PROVIDERS: ATTEND Internal Medicine
DX: I48.91 Unspecified atrial fibrillation (principal); D72.819 Decreased white blood cell count, unspecified; Z13.1 Encounter for screening for diabetes mellitus; Z86.39 Personal history of other endocrine, nutritional and metabolic disease
CPT/HCPCS: 36415; 80053; 80061; 82607; 82728; 83036; 83540; 83721; 84443; 84466; 85025

== ENCOUNTER 2023-04-25 14:21 | Outpatient (CLI) | payer MEDICARE, BC ==
[2023-04-25 20:10] LABS: BASOPHILS % (AUTO) 0.5 %; EOSINOPHILS # (AUTO) 0.1 10^3/uL (0.0-0.7); EOSINOPHILS % (AUTO) 1.8 %; HCT - HEMATOCRIT 39.8 % (37.0-47.0); HGB - HEMOGLOBIN 12.9 g/dL (12.0-16.0); LYMPHOCYTES # (AUTO) 1.1 10^3/uL (1.5-3.5); MEAN CORPUSCULAR HEMOGLOBIN 28.9 pg (27.0-31.0); MEAN CORPUSCULAR HGB CONC 32.4 g/dL (32.0-36.0); MEAN PLATELET VOLUME 11.2 fL (7.9-10.8); MONOCYTES # (AUTO) 0.8 10^3/uL (0.0-1.0); MONOCYTES % (AUTO) 20.2 %; NEUTROPHILS # (AUTO) 1.9 10^3/uL (1.5-6.6); NEUTROPHILS % (AUTO) 48.2 %; PLT - PLATELET COUNT 110 10^3/uL (130-450); RED BLOOD COUNT 4.47 10^6/uL (4.20-5.40); RED CELL DISTRIBUTION WIDTH 15.7 % (12.0-15.0)
== END 2023-04-25 14:22 | disposition home or self-care (01) ==
LOC: LAB.S 14:21
PROVIDERS: ATTEND Internal Medicine
DX: D72.819 Decreased white blood cell count, unspecified (principal)
CPT/HCPCS: 36415; 85025

== ENCOUNTER 2023-06-06 09:46 | Outpatient (CLI) | payer MEDICARE, BC ==
[2023-06-06 14:41] LABS: BASOPHILS % (AUTO) 0.6 %; EOSINOPHILS # (AUTO) 0.1 10^3/uL (0.0-0.7); EOSINOPHILS % (AUTO) 2.8 %; HCT - HEMATOCRIT 40.3 % (37.0-47.0); LYMPHOCYTES # (AUTO) 1.1 10^3/uL (1.5-3.5); LYMPHOCYTES % (AUTO) 34.7 %; MEAN CORPUSCULAR HEMOGLOBIN 29.6 pg (27.0-31.0); MEAN CORPUSCULAR HGB CONC 32.3 g/dL (32.0-36.0); MEAN CORPUSCULAR VOLUME 91.8 fL (81.0-99.0); MONOCYTES # (AUTO) 0.9 10^3/uL (0.0-1.0); MONOCYTES % (AUTO) 29.7 %; NEUTROPHILS % (AUTO) 30.9 %; PLT - PLATELET COUNT 103 10^3/uL (130-450); RED BLOOD COUNT 4.39 10^6/uL (4.20-5.40); RED CELL DISTRIBUTION WIDTH 16.3 % (12.0-15.0); WHITE BLOOD COUNT 3.2 x10^3/uL (4.8-10.8)
[2023-06-06 15:03] LABS: PLATELET ESTIMATE, MANUAL DECREASED (<130,000) (NORMAL); PLATELET MORPHOLOGY NORMAL APPEARANCE (NORMAL); RBC MORPHOLOGY (MULTIPLE) NORMAL APPEARANCE (NORMAL); SLIDE REVIEW? Indicated
[2023-06-06 15:15] LABS: ALBUMIN 4.4 g/dL (3.2-5.5); ALBUMIN/GLOBULIN RATIO 1.7 (1.0-2.2); BILIRUBIN,TOTAL 1.2 mg/dL (0.2-1.0); CALCIUM 10.1 mg/dL (8.5-10.3); CREATININE 0.8 mg/dL (0.6-1.3); POTASSIUM 4.1 mmol/L (3.5-4.5)
== END 2023-06-06 09:47 | disposition home or self-care (01) ==
LOC: LAB.S 09:46
PROVIDERS: ATTEND Internal Medicine
DX: M19.90 Unspecified osteoarthritis, unspecified site (principal); R68.89 Other general symptoms and signs
CPT/HCPCS: 36415; 80053; 85025

== ENCOUNTER 2023-07-27 12:40 | Outpatient (CLI) | payer MEDICARE, BC ==
[2023-07-27 15:46] LABS: BASOPHILS % (AUTO) 0.8 %; EOSINOPHILS # (AUTO) 0.1 10^3/uL (0.0-0.7); EOSINOPHILS % (AUTO) 3.2 %; HCT - HEMATOCRIT 39.1 % (37.0-47.0); HGB - HEMOGLOBIN 12.1 g/dL (12.0-16.0); LYMPHOCYTES % (AUTO) 27.4 %; MEAN CORPUSCULAR HEMOGLOBIN 28.5 pg (27.0-31.0); MEAN CORPUSCULAR HGB CONC 30.9 g/dL (32.0-36.0); MEAN PLATELET VOLUME 12.3 fL (7.9-10.8); MONOCYTES # (AUTO) 0.8 10^3/uL (0.0-1.0); MONOCYTES % (AUTO) 22.2 %; NEUTROPHILS # (AUTO) 1.7 10^3/uL (1.5-6.6); NEUTROPHILS % (AUTO) 45.1 %; PLT - PLATELET COUNT 117 10^3/uL (130-450); RED BLOOD COUNT 4.25 10^6/uL (4.20-5.40); RED CELL DISTRIBUTION WIDTH 15.9 % (12.0-15.0); WHITE BLOOD COUNT 3.8 x10^3/uL (4.8-10.8)
[2023-07-27 15:58] LABS: INR 1.1 (0.8-1.2); PT - PROTHROMBIN TIME 12.1 secs (9.9-12.6)
[2023-07-27 16:06] LABS: CALCIUM 10.1 mg/dL (8.5-10.3); CREATININE 0.8 mg/dL (0.6-1.3); POTASSIUM 4.3 mmol/L (3.5-4.5)
== END 2023-07-27 12:41 | disposition home or self-care (01) ==
LOC: LAB.S 12:40
PROVIDERS: ATTEND Internal Medicine Cardiovascular Disease
DX: I48.0 Paroxysmal atrial fibrillation (principal)
CPT/HCPCS: 36415; 80048; 85025; 85610

== ENCOUNTER 2023-08-29 09:42 | Outpatient (CLI) | payer MEDICARE, BC | END 2023-08-29 09:43 | disposition home or self-care (01) | LOC: LAB.S 09:42 | PROVIDERS: ATTEND Internal Medicine Cardiovascular Disease | DX: I48.0 Paroxysmal atrial fibrillation (principal) ==

== ENCOUNTER 2023-08-30 09:50 | Outpatient (CLI) | payer MEDICARE, BC ==
[2023-08-30 10:05] LABS: BASOPHILS % (AUTO) 0.4 %; EOSINOPHILS # (AUTO) 0.1 10^3/uL (0.0-0.7); EOSINOPHILS % (AUTO) 3.9 %; HGB - HEMOGLOBIN 12.6 g/dL (12.0-16.0); LYMPHOCYTES # (AUTO) 0.8 10^3/uL (1.5-3.5); LYMPHOCYTES % (AUTO) 27.9 %; MEAN CORPUSCULAR HEMOGLOBIN 28.6 pg (27.0-31.0); MEAN CORPUSCULAR HGB CONC 31.5 g/dL (32.0-36.0); MEAN CORPUSCULAR VOLUME 90.7 fL (81.0-99.0); MEAN PLATELET VOLUME 11.3 fL (7.9-10.8); MONOCYTES # (AUTO) 0.6 10^3/uL (0.0-1.0); NEUTROPHILS # (AUTO) 1.3 10^3/uL (1.5-6.6); NEUTROPHILS % (AUTO) 46.4 %; PLT - PLATELET COUNT 107 10^3/uL (130-450); RED BLOOD COUNT 4.41 10^6/uL (4.20-5.40); RED CELL DISTRIBUTION WIDTH 15.9 % (12.0-15.0); WHITE BLOOD COUNT 2.8 x10^3/uL (4.8-10.8)
[2023-08-30 10:19] LABS: CALCIUM 10.2 mg/dL (8.5-10.3); CREATININE 0.9 mg/dL (0.6-1.3); POTASSIUM 3.8 mmol/L (3.5-4.5)
[2023-08-30 10:21] LABS: RBC MORPHOLOGY (MULTIPLE) 2+ ANISOCYTOSIS (NORMAL); SLIDE REVIEW? Indicated
[2023-08-30 11:22] LABS: INR 1.1 (0.8-1.2); PT - PROTHROMBIN TIME 12.2 secs (9.9-12.6)
== END 2023-08-30 09:51 | disposition home or self-care (01) ==
LOC: LAB 09:50
PROVIDERS: ATTEND Internal Medicine Cardiovascular Disease
DX: I48.0 Paroxysmal atrial fibrillation (principal)
CPT/HCPCS: 36415; 80048; 85025; 85610